=== PATIENT | female | born 1960 | race Caucasian/White ===

== ENCOUNTER 2017-11-30 11:03 | Inpatient (IN) | payer OTHER ==
[~2017-11-30] VITALS: Ht 154.9 cm; Wt 54.0 kg
[2017-11-30] MEDS ORDERED: KETOROLAC TROMETHAMINE 30 MG/ML VIAL IV STA (11:30)
--- NOTE | 2017-11-30 11:34 | EMERGENCY ROOM VISIT NOTE ---
History Report prepared by Kishoribbaljinder: Nancy Brito Under the Supervision of: Dr. Shane Junior M.D. First contact with patient: 11:25 Chief Complaint: BACK PAIN Stated Complaint: SEVERE L SPINE PAIN,LEFT LEG PARALYSIS,FALLS History of Present Illness The patient is a 57 year old female who presents to the Emergency Room with complaints of worsening back pain for the past few months. She states she has a history of back pain, but it has worsened recently. This morning she was so off balance while trying to walk that she fell. She rates her discomfort as an 8/10 in severity. Movement worsens her pain. Ibuprofen and Vicodin have provided minimal relief. She reports she can no longer lift her left leg on her own due to weakness. She cannot walk well on her own. Her family doctor is back in [facility], and she has never seen Neurology for her symptoms. She denies any fevers, numbness in the groin, urinary symptoms, change in bowel habits. The patients daughter notes she did get a pain injection about 2 years ago for her back pain, but states it did nothing. She last had an MRI of the back approximately 2 years ago. 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 A total of 10 systems reviewed and were otherwise negative. Past Medical & Surgical Medical Problems: (1) Back pain (2) Hypertension Social History Alcohol Use: none Drug Use: none Marital Status: Housing Status: lives with family Occupation Status: retired Current/Historical Medications Scheduled Amlodipine (Norvasc), 10 MG PO DAILYBL Clonidine Hcl (Catapres), 0.2 MG PO BID Diclofenac Sod (Diclofenac Sodium Dr), 1 TAB PEG TIDM Lisinopril (Zestril), 10 MG PO DAILYBL Scheduled PRN Cyclobenzaprine Hcl (Flexeril), 1 TAB PO TID PRN for Muscle Spasms Allergies Coded Allergies: No Known Allergies (Unverified , 11/30/17) Physical Exam Vital Signs Date Time Temp Pulse Resp B/P (MAP) Pulse Ox O2 Delivery O2 Flow Rate FiO2 11/30/17 14:21 93 18 144/89 97 Room Air 11/30/17 11:09 36.8 100 20 140/85 97 Physical Exam GENERAL: Patient is in no acute distress. HEENT: No acute trauma, normocephalic atraumatic, mucous membranes moist, no nasal congestion, no scleral icterus. NECK: No stridor, no adenopathy, no meningismus, trachea is midline. LUNGS: Clear to auscultation bilaterally, no wheeze, no rhonchi, breath sounds equal. HEART: Without murmurs gallops or rubs, regular rate and rhythm. BACK: Left lumbar muscle spasm, no focal bony discomfort or bony step off. ABDOMEN: Soft, nontender, bowel sounds positive, no hernias, no peritonitis. EXTREMITIES: No cyanosis or edema, full range of motion of all the joints without pain or difficulty, no signs for acute trauma. NEUROLOGIC: 3/4 Patellar and Achilles reflexes bilaterally, significant weakness with hip flexion and leg extension on the left compared to the right. SKIN: No rash, no jaundice, no diaphoresis. Medical Decision & Procedures ER Provider Diagnostic Interpretation: Radiology results as stated below per my review and radiologist interpretation: MRI LUMBAR SPINE COMBINATION CLINICAL HISTORY: left leg weakness, lower back pain TECHNIQUE: Sagittal and axial T1, T2 and STIR images were obtained. Images were acquired before and after the administration of 5.4 cc of intravenous Gadavist. COMPARISON STUDY: No previous studies for comparison. OBSERVATIONS: The vertebral bodies and posterior elements appear intact. There is no abnormal bony signal present to suggest a marrow replacement process. L1-2: No disc protrusions or extrusions. No evidence of spinal canal or neural foraminal compromise. L2-3: There is a mild circumferential disc bulge. No focal herniations are visualized. There is no significant spinal or foraminal stenosis L3-4: There is a mild circumferential disc bulge slightly asymmetric to the left.. There is very minimal spinal canal narrowing. There are no focal herniations. There is no significant foraminal narrowing L4-5: There is an annular fissure and very small broad-based central disc protrusion. There is slight effacement of the thecal sac with a slight triangular configuration of the thecal sac. There is no significant foraminal narrowing L5-S1: There is an annular fissure. There is a very small central disc protrusion. There is no significant spinal or foraminal stenosis. Postcontrast images reveal no pathologically enhancing lesions. The conus medullaris and cauda equina appear normal. IMPRESSION: 1. Mild multilevel spondylitic changes 2. Annular fissures and mild right base central disc protrusions, at the L4-5 and L5-S1 levels. 3. No evidence of high-grade spinal stenosis. No evidence of foraminal narrowing. 4. No pathologically enhancing lesions identified Electronically signed by: Fawad Rogers M.D. 11/30/2017 2:20 PM Laboratory Results 11/30/17 11:46 11/30/17 11:46 Test 11/30/17 11:36 11/30/17 11:46 Urine Color YELLOW Urine Appearance CLEAR (CLEAR) Urine pH 6.5 (4.5-7.5) Urine Specific [place] 1.005 (1.000-1.030) Urine Protein NEG (NEG) Urine Glucose (UA) NEG (NEG) Urine Ketones NEG (NEG) Urine Occult Blood TRACE (NEG) Urine Nitrite NEG (NEG) Urine Bilirubin NEG (NEG) Urine Urobilinogen NEG (NEG) Urine Leukocyte Esterase TRACE (NEG) Urine WBC (Auto) 1-5 /hpf (0-5) Urine RBC (Auto) 0-4 /hpf (0-4) Urine Hyaline Casts (Auto) 0 /lpf (0-5) Urine Epithelial Cells (Auto) 5-10 /lpf (0-5) Urine Bacteria (Auto) NEG (NEG) Red Blood Count 5.14 M/uL (4.2-5.4) Mean Corpuscular Volume 91.1 fL (80-100) Mean Corpuscular Hemoglobin 31.1 pg (25-34) Mean Corpuscular Hemoglobin Concent 34.2 g/dl (32-36) RDW Standard Deviation 41.3 fL (36.4-46.3) RDW Coefficient of Variation 12.2 % (11.5-14.5) Mean Platelet Volume 10.1 fL (7.4-10.4) Anion Gap 5.0 mmol/L (3-11) Est Creatinine Clear Calc Drug Dose 53.1 ml/min Estimated GFR () 85.7 Estimated GFR (Non- 73.9 BUN/Creatinine Ratio 15.1 (10-20) Calcium Level 9.5 mg/dl (8.5-10.1) Magnesium Level 2.3 mg/dl (1.8-2.4) Thyroid Stimulating Hormone (TSH) 1.310 uIu/ml (0.300-4.500) Laboratory results reviewed by me. Medications Administered Medications (Trade) Dose Ordered Sig/Patricio Route Start Time Stop Time Status Last Admin Dose Admin Ketorolac Tromethamine (Toradol Inj) 30 mg NOW STAT IV 11/30/17 11:30 11/30/17 11:34 DC 11/30/17 11:46 30 MG Methylprednisolone Sodium Succinate (Solu-Medrol IV) 125 mg NOW STAT IV 11/30/17 15:27 11/30/17 15:28 DC 11/30/17 16:35 125 MG ED Course 1125: The patient was evaluated in room C3. A complete history and physical exam was performed. 1130: Toradol 30 mg IV. 1255: I reevaluated the patient. She is feeling well and resting comfortably. 1345: Gadavist 5.4 mmol IV. 1448: I reevaluated the patient. She is feeling somewhat better but still feels weak. 1455: I discussed the patients case with Dr. Bush, [facility]. She will have her office contact the patient tomorrow. 1522: I reevaluated the patient. She states she feels afraid to go home and her family is afraid to take her home. I spoke to case management and they state there are no options other than treatment in the hospital. I discussed this with the patient and she is agreeable with this plan. 1527: I discussed the patients case with Dr. Yuan, [facility] Hospitalist. The patient will be further evaluated. 1527: Solu-Medrol 125 mg IV. Medical Decision The differential diagnoses considered include disc disease, spinal stenosis, nerve impingement, malignancy, infection, UTI and electrolyte imbalance. There is a very mild leukocytosis, this could be consistent with infection or just her pain. No concerning anemia. No significant electrolyte abnormality or kidney failure. The patient appears to be in a euthyroid state. Urinalysis does not show evidence for infection. Lumbar spine MRI did not show any acute surgical process or lesion that would explain her symptoms. On my exam, her left leg was weak, her reflexes were intact. She had a very difficult time ambulating here, she fell this morning trying to ambulate. I did speak with the neurologist on-call, steroids were felt reasonable. The patient received IV Solu-Medrol for inflammation, she received IV Toradol for pain. The patient is not able to go home as per the family. They feel unsafe with discharge. At this point, the cause for this entire presentation is unclear. Her weakness is isolated to her left lower extremity, she is not weak in the left upper extremity, there is no facial droop or speech slur. I spoke to the patient and case management, the on-call hospitalist was consulted. Further workup is required. Medication Reconcilliation Current Medication List: was personally reviewed by me Blood Pressure Screening Patient's blood pressure: Elevated blood pressure Blood pressure disposition: Elevated BP felt to be situational Consults Time Called: 1453 Consulting Physician: [facility] Returned Call: [phone] I discussed the patients case with [facility]. She will have her office contact the patient tomorrow. Additional Consults: Time Called: 1525 Consulted Physician: Dr. Yuan, [facility] Hospitalist Returned Call: [phone] Additional Comments: I discussed the patients case with Dr. Yuan [facility] Hospitalist. The patient will be further evaluated. Impression Primary Impression: Low back pain Additional Impressions: Left leg weakness Frequent falls Failure of outpatient treatment Scribe Attestation The scribe's documentation has been prepared under my direction and personally reviewed by me in its entirety. I confirm that the note above accurately reflects all work, treatment, procedures, and medical decision making performed by me. Departure Information Dispostion Being Evaluated By Hospitalist Referrals Jeramy Tariq D.O. (PCP) Patient Instructions My [facility] Problem Qualifiers
[2017-11-30 11:56] LABS: HEMATOCRIT 46.8 % (37-47); MEAN CELL VOLUME 91.1 fL (80-100); MEAN CORPUSCULAR HEMOGLOBIN 31.1 pg (25-34); MEAN CORPUSCULAR HGB CONC 34.2 g/dl (32-36); MEAN PLATELET VOLUME 10.1 fL (7.4-10.4); PLATELET COUNT 303 K/uL (130-400); RED CELL DISTRIBUTION WIDTH CV 12.2 % (11.5-14.5); RED CELL DISTRIBUTION WIDTH SD 41.3 fL (36.4-46.3); WHITE BLOOD COUNT 11.86 K/uL (4.8-10.8)
[2017-11-30] MEDS ORDERED: LISI-461 PO (11:56)
[2017-11-30] MEDS ORDERED: AMLO-114 PO (12:00)
[2017-11-30] MEDS ORDERED: VLT50 PEG (12:00)
[2017-11-30] MEDS ORDERED: CYCL10TA6 PO (12:00)
[2017-11-30] MEDS ORDERED: CLON0.2T11 PO (12:00)
[2017-11-30 12:14] LABS: CALCIUM 9.5 mg/dl (8.5-10.1); CREATININE 0.86 mg/dl (0.60-1.20); POTASSIUM 3.7 mmol/L (3.5-5.1)
[2017-11-30] MEDS ORDERED: GADAVIST IV PRN (13:45)
--- NOTE | 2017-11-30 14:21 | DIAGNOSTIC IMAGING REPORT ---
MRI LUMBAR SPINE COMBINATION CLINICAL HISTORY: left leg weakness, lower back pain TECHNIQUE: Sagittal and axial T1, T2 and STIR images were obtained. Images were acquired before and after the administration of 5.4 cc of intravenous Gadavist. COMPARISON STUDY: No previous studies for comparison. OBSERVATIONS: The vertebral bodies and posterior elements appear intact. There is no abnormal bony signal present to suggest a marrow replacement process. L1-2: No disc protrusions or extrusions. No evidence of spinal canal or neural foraminal compromise. L2-3: There is a mild circumferential disc bulge. No focal herniations are visualized. There is no significant spinal or foraminal stenosis L3-4: There is a mild circumferential disc bulge slightly asymmetric to the left.. There is very minimal spinal canal narrowing. There are no focal herniations. There is no significant foraminal narrowing L4-5: There is an annular fissure and very small broad-based central disc protrusion. There is slight effacement of the thecal sac with a slight triangular configuration of the thecal sac. There is no significant foraminal narrowing L5-S1: There is an annular fissure. There is a very small central disc protrusion. There is no significant spinal or foraminal stenosis. Postcontrast images reveal no pathologically enhancing lesions. The conus medullaris and cauda equina appear normal. IMPRESSION: 1. Mild multilevel spondylitic changes 2. Annular fissures and mild right base central disc protrusions, at the L4-5 and L5-S1 levels. 3. No evidence of high-grade spinal stenosis. No evidence of foraminal narrowing. 4. No pathologically enhancing lesions identified Electronically signed by: Fawad Rogers M.D. 11/30/2017 2:20 PM Dictated Date/Time: 11/30/2017 2:15 PM
[2017-11-30] MEDS ORDERED: METHYLPREDNISOLONE 125 MG VIAL IV STA (15:27)
[2017-11-30] MEDS ORDERED: ONDANSETRON INJ 2 MG/ML 2 ML VIAL IV PRN (15:45)
--- NOTE | 2017-11-30 16:00 | History and Physical ---
History & Physical Date & Time of Service: Nov 30, 2017 at 15:48 Chief Complaint: Severe L Spine Pain,Left Leg Paralysis,Falls Primary Care Physician: Jeramy Tariq D.O. History of Present Illness Source: patient, family 57 y/o F c/o back pain and L LE weakness. Pt has been having progressing low back pain and L LE weakness over the last several months. She has back spasms that are very painful to her. She has had progressive weakness of L LE to the point that she has been dragging her L LE over the last few weeks. This has lead to multiple falls, although no injuries or concerns for injuries from pt or daughter. She has otherwise been in her usual status of health. She has had no confusion, slurring, facial droop, or issues with her UE. No pain or issues with the R LE. No numbness or tingling in the LE. She eats without issue. Pt denies fever, SOB, chest pain, abd pain, n/v/c/d, LE swelling. [place] She has no known tick bites or rashes, but there are different types of ticks pulled off of the dogs. She has no hx of Lyme disease. She did see her PCP for this issue an labs were done in July. Daughter states basic labs including thyroid, but no Lyme testing. She was given pain medications, however they have not helped at all. Pt has no hx of hospitalizations or major health issues. She has never had MSK issues like this prior. Past Medical/Surgical History Medical Problems: (1) Back pain (2) Hypertension Family History Denies SD, CVA Social History Smoking Status: Current Every Day Smoker (down to 1/2 ppd) Alcohol Use: none Drug Use: none Marital Status: Occupational Status: retired Allergies Coded Allergies: No Known Allergies (Unverified , 11/30/17) Home Medications Scheduled Amlodipine (Norvasc), 10 MG PO DAILYBL Clonidine Hcl (Catapres), 0.2 MG PO BID Diclofenac Sod (Diclofenac Sodium Dr), 1 TAB PEG TIDM Lisinopril (Zestril), 10 MG PO DAILYBL Scheduled PRN Cyclobenzaprine Hcl (Flexeril), 1 TAB PO TID PRN for Muscle Spasms Review of Systems Pertinent positives and negatives reviewed in HPI--all others negative Physical Exam Vital Signs Date Time Temp Pulse Resp B/P (MAP) Pulse Ox O2 Delivery O2 Flow Rate FiO2 11/30/17 14:21 93 18 144/89 97 Room Air 11/30/17 11:09 36.8 100 20 140/85 97 General Appearance: WD/WN, no apparent distress Head: normocephalic, atraumatic Eyes: normal inspection, sclerae normal Respiratory/Chest: normal breath sounds, no respiratory distress Cardiovascular: regular rate, rhythm, no edema Abdomen/GI: non tender, soft Extremities/Musculoskelatal: no calf tenderness, no pedal edema 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 R LE is 5/5 against resistance in all planes. L LE is 5/5 but slightly weaker against resistance testing of ankle and knee, 0/5 from the hip.) Skin: normal color, warm/dry Diagnostics Laboratory Results Results Past 24 Hours Test 11/30/17 11:36 11/30/17 11:46 Range/Units Urine Color YELLOW Urine Appearance CLEAR CLEAR Urine pH 6.5 4.5-7.5 Urine Specific [place] 1.005 1.000-1.030 Urine Protein NEG NEG Urine Glucose (UA) NEG NEG Urine Ketones NEG NEG Urine Occult Blood TRACE NEG Urine Nitrite NEG NEG Urine Bilirubin NEG NEG Urine Urobilinogen NEG NEG Urine Leukocyte Esterase TRACE NEG Urine WBC (Auto) 1-5 0-5 /hpf Urine RBC (Auto) 0-4 0-4 /hpf Urine Hyaline Casts (Auto) 0 0-5 /lpf Urine Epithelial Cells (Auto) 5-10 0-5 /lpf Urine Bacteria (Auto) NEG NEG White Blood Count 11.86 4.8-10.8 K/uL Red Blood Count 5.14 4.2-5.4 M/uL Hemoglobin 16.0 12.0-16.0 g/dL Hematocrit 46.8 37-47 % Mean Corpuscular Volume 91.1 80-100 fL Mean Corpuscular Hemoglobin 31.1 25-34 pg Mean Corpuscular Hemoglobin Concent 34.2 32-36 g/dl RDW Standard Deviation 41.3 36.4-46.3 fL RDW Coefficient of Variation 12.2 11.5-14.5 % Platelet Count 303 130-400 K/uL Mean Platelet Volume 10.1 7.4-10.4 fL Sodium Level 139 136-145 mmol/L Potassium Level 3.7 3.5-5.1 mmol/L Chloride Level 105 98-107 mmol/L Carbon Dioxide Level 29 21-32 mmol/L Anion Gap 5.0 3-11 mmol/L Blood Urea Nitrogen 13 7-18 mg/dl Creatinine 0.86 0.60-1.20 mg/dl Est Creatinine Clear Calc Drug Dose 53.1 ml/min Estimated GFR () 85.7 Estimated GFR (Non- 73.9 BUN/Creatinine Ratio 15.1 10-20 Random Glucose 93 70-99 mg/dl Calcium Level 9.5 8.5-10.1 mg/dl Magnesium Level 2.3 1.8-2.4 mg/dl Thyroid Stimulating Hormone (TSH) 1.310 0.300-4.500 uIu/ml Diagnostic Radiology MRI 1. Mild multilevel spondylitic changes 2. Annular fissures and mild right base central disc protrusions, at the L4-5 and L5-S1 levels. 3. No evidence of high-grade spinal stenosis. No evidence of foraminal narrowing. 4. No pathologically enhancing lesions identified Impression Assessment and Plan 57 y/o F who was admitted on 11/30 for L LE weakness and inability to ambulate. L LE weakness/inability to ambulate: progressive over the last several months and now leading to falls and inability to take care of herself L LE is generally weaker in all planes compared to R but still 5/5 from the ankle and knee, however has 0/5 strength from the hip specifically LBP noted as well Scheduled decadron and monitor for response, toradol MRI noted with minimal findings that would not explain this issue CBC, PRP, Mg, TSH WNL Lyme, B12/folate, RPR pending UA neg PT/OT pending HTN: stable, continue home meds Tobacco use: has been working towards quitting Nicotine patch 14mg Other: Full code SCDs for DVT proph Reg diet Pt lives alone, CM notified of admission Resuscitation Status VTE Prophylaxis Will order VTE Prophylaxis: Yes Reason for no VTE drug order: Treatment not indicated
[2017-11-30 16:16] VITALS: O2SAT 97; Ht 154.9 cm; Wt 54.0 kg
[2017-11-30] MEDS ORDERED: DICLOFENAC SOD 25 MG TABEC PEG SCH (17:00)
[2017-11-30 17:01] VITALS: BP 150/94; PULSE 78; O2SAT 100
[2017-11-30 17:04] VITALS: O2SAT 100
[2017-11-30] MEDS: DEXAMETHASONE INJ 4 MG in SYRINGE 0 ML IV SCH (18:14)
[2017-11-30] MEDS ORDERED: IV FLUIDS COMPLETED PRN (20:00)
[2017-11-30] MEDS: CLONIDINE HCL 0.1 MG TAB PO SCH (20:06)
[2017-11-30] MEDS: CYANOCOBALAMIN 1000 MCG/ML VIAL IM SCH (20:11)
[2017-11-30 23:53] VITALS: BP 124/86; PULSE 77; O2SAT 98
[2017-12-01] MEDS: DEXAMETHASONE INJ 4 MG in SYRINGE 0 ML IV SCH ×3 (01:59→18:57)
[2017-12-01 07:30] VITALS: BP 130/90; PULSE 78; TEMP 36.7; O2SAT 98
[2017-12-01] MEDS: CLONIDINE HCL 0.1 MG TAB PO SCH ×2 (08:29→20:11)
[2017-12-01] MEDS: NICOTINE 14 MG/24 HR TDSY TD SCH (08:33)
[2017-12-01] MEDS: KETOROLAC TROMETHAMINE 15 MG/ML VIAL IV PRN ×2 (08:33→10:12)
[2017-12-01 08:36] VITALS: O2SAT 98
--- NOTE | 2017-12-01 10:31 | Progress Note ---
Subjective Date of Service: Dec 01, 2017. Subjective Pt evaluation today including: conversation w/ patient Patient reports weakness in her left leg specifically her hip flexors. Patient also reporrts pain from her lower back that radiates to her left leg. Problem List Medical Problems: (1) Failure of outpatient treatment Status: Acute (2) Frequent falls Status: Acute (3) Left leg weakness Status: Acute (4) Low back pain Status: Acute Review of Systems Constitutional: No fever Eyes: No worsening of vision ENT: No hearing loss Respiratory: No cough Cardiac: No chest pain Abdomen: No pain Musculoskeletal: + muscle pain Neurologic: + weakness Psychiatric: No depression symptoms Heme: No abnormal bleeding/bruising Endo: No fatigue All Other Systems: Reviewed and Negative Medications Current Inpatient Medications Medications (Trade) Dose Ordered Sig/Patricio Route Start Time Stop Time Status Last Admin Dose Admin Gadobutrol (Gadavist) 5.4 mmol UD PRN IV 11/30/17 13:45 12/04/17 13:44 Acetaminophen (Tylenol Tab) 650 mg Q4H PRN PO 11/30/17 15:45 12/30/17 15:44 Magnesium Hydroxide (Milk Of Magnesia Susp) 30 ml Q6H PRN PO 11/30/17 15:45 12/30/17 15:44 Ondansetron HCl (Zofran Inj) 4 mg Q6H PRN IV 11/30/17 15:45 12/30/17 15:44 Dexamethasone Sodium Phosphate 4 mg/Syringe 1 ml @ 1 mls/min Q8H IV 11/30/17 18:00 12/30/17 17:59 12/01/17 01:59 1 MLS/MIN Ketorolac Tromethamine (Toradol Inj) 15 mg Q6H PRN IV 11/30/17 16:00 12/05/17 15:59 12/01/17 08:33 15 MG Amlodipine Besylate (Norvasc Tab) 10 mg DAILYBL PO 12/01/17 11:00 12/31/17 10:59 Cyclobenzaprine HCl (Flexeril Tab) 10 mg TID PRN PO 11/30/17 18:00 12/30/17 17:59 Lisinopril (Zestril Tab) 10 mg DAILYBL PO 12/01/17 11:00 12/31/17 10:59 Clonidine HCl (Catapres Tab) 0.2 mg BID PO 11/30/17 20:00 12/30/17 20:59 12/01/17 08:29 0.2 MG Diclofenac Sodium (Voltaren Tab) 50 mg TIDM PEG 11/30/17 17:00 12/30/17 17:59 Future Hold Nicotine (Nicoderm Cq 14MG Patch) 1 patch QAM TD 12/01/17 08:00 12/31/17 08:59 Miscellaneous (Remove Nicoderm Patch) 1 ea HS N/A 11/30/17 21:00 12/30/17 20:59 Cyanocobalamin (Vitamin B-12 Inj) 1,000 mcg DAILY@1900 IM 11/30/17 19:00 12/04/17 18:44 11/30/17 20:11 1,000 MCG Miscellaneous (Iv Fluids Completed) 1 ea PRN PRN N/A 11/30/17 20:00 11/30/18 19:59 Objective Vital Signs Date Time Temp Pulse Resp B/P (MAP) Pulse Ox O2 Delivery O2 Flow Rate FiO2 12/01/17 08:36 98 Room Air 12/01/17 07:30 36.7 78 20 130/90 (103) 98 Room Air 12/01/17 04:00 Room Air 12/01/17 00:00 Room Air 11/30/17 23:53 77 18 124/86 (99) 98 Room Air 11/30/17 17:04 100 Room Air 11/30/17 17:01 78 16 150/94 (112) 100 Room Air 11/30/17 16:40 36.8 90 18 141/107 100 11/30/17 16:34 90 18 141/107 100 11/30/17 16:16 97 Room Air 11/30/17 14:21 93 18 144/89 97 Room Air 11/30/17 11:09 36.8 100 20 140/85 97 Physical Exam General Appearance: WD/WN, no apparent distress Eyes: normal inspection ENT: normal ENT inspection Neck: supple, no adenopathy Respiratory/Chest: chest non-tender, lungs clear, normal breath sounds Cardiovascular: regular rate, rhythm, no edema Abdomen: normal bowel sounds, non tender, soft Extremities: normal range of motion Neurologic/Psychiatric: alert, oriented x 3, + pertinent finding Comments: + pertinent finding (normal sensations in all extremities, 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 R LE is 5/5 against resistance in all planes. L LE is 4+/5 withslightly weaker against resistance testing of ankle and knee, 2-3/5 from the hip.) Laboratory Results Last 24 Hours Test 11/30/17 11:36 11/30/17 11:46 11/30/17 17:23 Urine Color YELLOW Urine Appearance CLEAR Urine pH 6.5 Urine Specific [place] 1.005 Urine Protein NEG Urine Glucose (UA) NEG Urine Ketones NEG Urine Occult Blood TRACE Urine Nitrite NEG Urine Bilirubin NEG Urine Urobilinogen NEG Urine Leukocyte Esterase TRACE Urine WBC (Auto) 1-5 /hpf Urine RBC (Auto) 0-4 /hpf Urine Hyaline Casts (Auto) 0 /lpf Urine Epithelial Cells (Auto) 5-10 /lpf Urine Bacteria (Auto) NEG White Blood Count 11.86 K/uL Red Blood Count 5.14 M/uL Hemoglobin 16.0 g/dL Hematocrit 46.8 % Mean Corpuscular Volume 91.1 fL Mean Corpuscular Hemoglobin 31.1 pg Mean Corpuscular Hemoglobin Concent 34.2 g/dl RDW Standard Deviation 41.3 fL RDW Coefficient of Variation 12.2 % Platelet Count 303 K/uL Mean Platelet Volume 10.1 fL Sodium Level 139 mmol/L Potassium Level 3.7 mmol/L Chloride Level 105 mmol/L Carbon Dioxide Level 29 mmol/L Anion Gap 5.0 mmol/L Blood Urea Nitrogen 13 mg/dl Creatinine 0.86 mg/dl Est Creatinine Clear Calc Drug Dose 53.1 ml/min Estimated GFR () 85.7 Estimated GFR (Non- 73.9 BUN/Creatinine Ratio 15.1 Random Glucose 93 mg/dl Calcium Level 9.5 mg/dl Magnesium Level 2.3 mg/dl Thyroid Stimulating Hormone (TSH) 1.310 uIu/ml Lyme Disease IgG Antibody NEG Lyme Disease IgM Antibody NEG Hepatitis C Antibody Screen NEG Vitamin B12 Level 335 pg/mL Folate 7.40 ng/mL Assessment and Plan 57 y/o F who was admitted on 11/30 for L LE weakness and inability to ambulate. L LE weakness/inability to ambulate: progressive over the last several months and now leading to falls and inability to take care of herself L LE is generally weaker in all planes compared to R but still 5/5 from the ankle and knee, however has 0/5 strength from the hip specifically LBP noted as well May require EMG. Scheduled decadron and monitor for response, toradol Will likely switch to PO in afternoon. MRI noted with minimal findings that would not explain this issue CBC, PRP, Mg, TSH WNL Lyme, B12/folate, RPR pending UA neg PT/OT pending HTN: stable, continue home meds Tobacco use: has been working towards quitting Nicotine patch 14mg Other: Full code SCDs for DVT proph Reg diet Pt lives alone, CM notified of admission Continued [facility] stay due to: ambulation difficulties Discharge planning: uncertain
[2017-12-01] MEDS: LISINOPRIL 10 MG TAB PO SCH (11:42)
[2017-12-01] MEDS: AMLODIPINE BESYLATE 5 MG TAB PO SCH (11:43)
--- NOTE | 2017-12-01 13:39 | Neurology Consultation ---
Neurology Consultation Date of Consultation: Dec 01, 2017. Attending Physician: Malachi French M.D. Primary Care Physician: Jeramy Tariq D.O. Reason for Consultation: LLE weakness History of Present Illness Source: patient Francisco is a 57 year old female with PMH HTN, and history of back pain and L LE weakness. She states the back pain has increased and L LE weakness had increased over the last several months. At times she has very painful back spasm and at times she drags her left LE. she has had multiple falls, although no injuries. She denies fever chills night sweats, illness, N, V, D, CP, SOB, chewing difficulties, fatiguing during the day, UE weakness, swallowing issues, vision changes, hearing loss. 1/2 ppd smoker, no EtOH use, minimal caffeine use, no neurologic or rheumatologic family history Past Medical/Surgical History Medical Problems: (1) Failure of outpatient treatment Status: Acute (2) Frequent falls Status: Acute (3) Left leg weakness Status: Acute (4) Low back pain Status: Acute Social History Smoking Status: Current every day smoker Smokeless Tobacco Use: No Alcohol Use: none Drug Use: none Marital Status: Housing Status: lives with family Occupation Status: retired Allergies Coded Allergies: No Known Allergies (Unverified , 11/30/17) Current Inpatient Medications Current Inpatient Medications Medications (Trade) Dose Ordered Sig/Patricio Route Start Time Stop Time Status Last Admin Dose Admin Gadobutrol (Gadavist) 5.4 mmol UD PRN IV 11/30/17 13:45 12/04/17 13:44 Acetaminophen (Tylenol Tab) 650 mg Q4H PRN PO 11/30/17 15:45 12/30/17 15:44 Magnesium Hydroxide (Milk Of Magnesia Susp) 30 ml Q6H PRN PO 11/30/17 15:45 12/30/17 15:44 Ondansetron HCl (Zofran Inj) 4 mg Q6H PRN IV 11/30/17 15:45 12/30/17 15:44 Dexamethasone Sodium Phosphate 4 mg/Syringe 1 ml @ 1 mls/min Q8H IV 11/30/17 18:00 12/30/17 17:59 12/01/17 10:12 1 MLS/MIN Ketorolac Tromethamine (Toradol Inj) 15 mg Q6H PRN IV 11/30/17 16:00 12/05/17 15:59 12/01/17 10:12 15 MG Amlodipine Besylate (Norvasc Tab) 10 mg DAILYBL PO 12/01/17 11:00 12/31/17 10:59 12/01/17 11:43 10 MG Cyclobenzaprine HCl (Flexeril Tab) 10 mg TID PRN PO 11/30/17 18:00 12/30/17 17:59 Lisinopril (Zestril Tab) 10 mg DAILYBL PO 12/01/17 11:00 12/31/17 10:59 12/01/17 11:42 10 MG Clonidine HCl (Catapres Tab) 0.2 mg BID PO 11/30/17 20:00 12/30/17 20:59 12/01/17 08:29 0.2 MG Diclofenac Sodium (Voltaren Tab) 50 mg TIDM PEG 11/30/17 17:00 12/30/17 17:59 Future Hold Nicotine (Nicoderm Cq 14MG Patch) 1 patch QAM TD 12/01/17 08:00 12/31/17 08:59 Miscellaneous (Remove Nicoderm Patch) 1 ea HS N/A 11/30/17 21:00 12/30/17 20:59 Cyanocobalamin (Vitamin B-12 Inj) 1,000 mcg DAILY@1900 IM 11/30/17 19:00 12/04/17 18:44 11/30/17 20:11 1,000 MCG Miscellaneous (Iv Fluids Completed) 1 ea PRN PRN N/A 11/30/17 20:00 11/30/18 19:59 Physical Exam Vital Signs (Past 24 Hrs): Date Time Temp Pulse Resp B/P (MAP) Pulse Ox O2 Delivery O2 Flow Rate FiO2 12/01/17 10:00 Room Air 12/01/17 08:36 98 Room Air 12/01/17 07:30 36.7 78 20 130/90 (103) 98 Room Air 12/01/17 04:00 Room Air 12/01/17 00:00 Room Air 11/30/17 23:53 77 18 124/86 (99) 98 Room Air 11/30/17 17:04 100 Room Air 11/30/17 17:01 78 16 150/94 (112) 100 Room Air 11/30/17 16:40 36.8 90 18 141/107 100 11/30/17 16:34 90 18 141/107 100 11/30/17 16:16 97 Room Air 11/30/17 14:21 93 18 144/89 97 Room Air Physical Exam: Constitutional:appearance nourished, healthy and normal Ears, Nose, Mouth and Throat: mucous membranes moist, no injection and skin normal, eyes normal Cardiovascular: normal S-1 and S-2 and regular rate and rhythm Respiratory: course breath sounds Musculoskeletal: no peripheral edema and good distal pulses Skin: no stigmata of neurocutaneous disease noted and normal and intact Eyes: extraocular muscles intact (EOMI) and pupils equal, round and reactive to light (PERRL) NEUROLOGIC EXAMINATION: Mental status: Alert and interactive Oriented to full date and location Oriented to person Speech fluent with no evidence of aphasia Cranial Nerves smile eye brow raise symmetric Reflexes: Deep tendon reflexes were symmetrical and graded 2/5. up going toes bilaterally Sensory: light or cool touch intact, GT proprioception in tact Coordination: finger to nose no bi pass Gait/Stance: Posture sitting in bed uses hands to move both legs when getting OOB, stands but romberg with eyes open Motor: slight drift with LUE Strength: biceps triceps deltoids with no fatiguing bilaterally 5/5, hip flex left 0/5, patellar/plantar flex ext 4/5, right hip flex plantar patellar flex ext 4/5 Laboratory Results Past 24 Hours: Test 11/30/17 17:23 12/01/17 12:06 Vitamin B12 Level 335 pg/mL (211-911) Folate 7.40 ng/mL (>5.38) Erythrocyte Sedimentation Rate 2 mm/hr (0-21) C-Reactive Protein < 0.29 mg/dl (0-0.29) Imaging MRI L spine -Mild multilevel spondylitic changes 2. Annular fissures and mild right base central disc protrusions, at the L4-5 and L5-S1 levels. No evidence of high-grade spinal stenosis. No evidence of foraminal narrowing. No pathologically enhancing lesions identified Impression 57 year old female multiple falls / LLE weakness Plan 1. xray lumbar spine and hips sacrum- no fracture 2. MRI brain, c spine, thoracic spine myopathy 3. currently on steroids and Flexeril 4. fall risk 5. PT/OT for discharge needs 6. will continue to follow I have seen and discussed above patient with Dr Theodore Carmona, neurology I have seen this patient and reviewed the history which unfortunately is vague I need to get in contact with the daughter at some point but for now the history suggests a progressive gait issue worse with the left leg and not particularly painful for at least a few months in a woman who has clear cut cognitive issues and what appears to be a myelopathy She needs entire neuroaxis imaging to exclude a cord compression in the thoracic or cervical spine and imaging of brain to further check for a leukoencephalopathy hydrocephalus etc we will hopefully know more when a better history is available and imaging is complete Theodore Carmona MD
--- NOTE | 2017-12-01 14:32 | DIAGNOSTIC IMAGING REPORT ---
PELVIS/BILATERAL HIP 2 VIEWS HISTORY: 57 years-old Female left hip and back pain MRI with no disc issues acute left hip and back pain COMPARISON: MRI lumbar spine 11/30/2017 TECHNIQUE: Single AP view the pelvis with 2 views of the bilateral hips FINDINGS: Pelvic ring is intact. No acute fracture, dislocation or significant degenerative changes. Mild degenerative changes involve the bilateral femoral acetabular joints. The SI joints appear unremarkable. Peripheral vascular calcifications are noted. Mild/moderate stool volume of the sigmoid colon. IMPRESSION: 1. No acute fracture. 2. Mild degenerative changes about the bilateral hips. The above report was generated using voice recognition software. It may contain grammatical, syntax or spelling errors. Electronically signed by: Isaak Parekh M.D. 12/01/2017 2:31 PM Dictated Date/Time: 12/01/2017 2:28 PM
[2017-12-01 14:49] VITALS: BP 133/97; PULSE 94; TEMP 36.7; O2SAT 99
[2017-12-01 15:29] VITALS: O2SAT 99
[2017-12-01] MEDS ORDERED: GADAVIST IV PRN (18:15)
--- NOTE | 2017-12-01 18:45 | DIAGNOSTIC IMAGING REPORT ---
MRI OF THE BRAIN COMBO CLINICAL HISTORY: Lower extremity weakness. COMPARISON STUDY: No priors. TECHNIQUE: MRI of the brain was performed utilizing various T1 and T2-weighted sequences in the axial, sagittal, and coronal planes. Contrast-enhanced sequences were acquired following the administration of 5 cc of Gadavist. FINDINGS: Brain parenchyma: There is involutional changes change noting advanced confluent T2 signal abnormality throughout the subcortical and periventricular white matter. A 6 mm focus of abnormal enhancement is identified within the right periventricular white matter, best seen on coronal postcontrast image #11. No additional foci of abnormal enhancement are clearly identified on the postcontrast sequences. Numerous T2 hyperintense foci are present throughout both cerebellar hemispheres, the basal ganglia, the corpus callosum, both thalami, and the periventricular white matter. There is no hemorrhage or mass effect. There is no restricted diffusion typical for acute ischemia. Elizondo-white matter differentiation is preserved. No extra-axial fluid collection is seen. The cerebellar tonsils are normal in configuration. Ventricles, sulci, and cisterns: Prominent secondary to involutional change. Pituitary and sella: Unremarkable. Intracranial vasculature: Normal flow voids are maintained at the skull base. Orbits: The bony orbits are grossly intact. Orbital contents are normal in appearance. Sinuses and mastoids: Clear. Calvarium: Unremarkable. Cervical cord: Partially visualized cervical spinal cord is normal in morphology and signal intensity. IMPRESSION: 1. There is no hemorrhage, mass effect, or evidence of acute ischemia. 2. Advanced confluent white matter changes as above, with additional foci of signal abnormality scattered throughout the cerebellum, corpus callosum, and basal ganglia. A subcentimeter focus of abnormal enhancement is identified within the right periventricular white matter as above. The appearance is nonspecific but is highly suspicious for a demyelinating process such as multiple sclerosis. Differential considerations include other demyelinating processes or less likely an infectious process such as Lyme disease. Clinical correlation will be essential. Electronically signed by: Shane Hart M.D. 12/01/2017 6:44 PM Dictated Date/Time: 12/01/2017 6:36 PM
--- NOTE | 2017-12-01 19:57 | DIAGNOSTIC IMAGING REPORT ---
MRI OF THE CERVICAL SPINE COMBO CLINICAL HISTORY: Lower extremity weakness. COMPARISON STUDY: No priors. TECHNIQUE: MRI of the cervical spine is performed utilizing various T1 and T2-weighted sequences in the axial and sagittal planes. Contrast-enhanced sequences are acquired following the IV administration of 5 cc of Gadavist. The examination is degraded by motion artifact. FINDINGS: Cervical spine: Vertebral body height and alignment are maintained throughout the cervical spine. There is straightening of the cervical lordosis with reversal centered at C4-C5. Marrow signal intensity is heterogeneous. No destructive bony lesion is identified. The atlantodental articulation appears maintained. The spinous processes are intact as imaged. Intervertebral discs: Degenerative disc desiccation is seen throughout the cervical spine. Mild loss of height is seen from C4-C5 through C6-C7. Spinal cord: The visualized spinal cord is normal in morphology. There are numerous T2 hyperintense lesions/plaques seen throughout the cervical cord. The largest plaque is identified at the level of C2-C3 and measures 2.1 cm in length. A 1.1 cm plaque is seen at the C6-C7 level and a 1.2 cm plaque is seen at the C7-T1 level. Numerous additional tiny plaques are seen at all cervical levels. No abnormal enhancement is identified within these plaques on the postcontrast sequences. C2-C3: A tiny posterior disc osteophyte complex is of no consequence. The central canal and neural foramina are patent. C3-C4: A posterior disc osteophyte complex eccentric to the right effaces the ventral subarachnoid space. Uncovertebral and facet arthropathy cause minimal right-sided neural foraminal narrowing. C4-C5: A posterior disc osteophyte complex eccentric to the left abuts the ventral cord. The neural foramina are patent. C5-C6: The central canal is patent. Uncovertebral and facet arthropathy cause moderate left and mild right neural foraminal stenosis. C6-C7: A posterior disc osteophyte complex eccentric to the left is of no consequence. Uncovertebral and facet arthropathy cause [id number] left and moderate right neural foraminal stenosis. C7-T1: Unremarkable. Soft tissues: The prevertebral and paraspinous soft tissues are normal as visualized. Brain parenchyma: Lesions are present within the brainstem and both cerebellar hemispheres. IMPRESSION: 1. There are numerous T2 hyperintense lesions/plaques identified throughout the cervical cord. The appearance is most suggestive of a demyelinating process such as multiple sclerosis. Clinical correlation will be essential. 2. There is no abnormal enhancement identified on the postcontrast sequences to suggest active demyelination. 3. Mild multilevel spondylotic change as above. 4. No destructive osseous process is identified. Dictated: 12/01/2017 7:09 PM Transcribed: 12/01/2017 7:56 PM [email or web address] Electronically signed by: Shane Hart M.D. 12/01/2017 8:29 PM Dictated Date/Time: 12/01/2017 7:09 PM
--- NOTE | 2017-12-01 20:01 | DIAGNOSTIC IMAGING REPORT ---
MRI OF THE THORACIC SPINE COMBO CLINICAL HISTORY: Lower extremity weakness. COMPARISON STUDY: MRI of the brain and cervical spine performed concurrently on 12/01/2017. TECHNIQUE: MRI of the thoracic spine is performed utilizing various T1 and T2-weighted sequences in the axial, sagittal, and coronal planes. Contrast-enhanced sequences were acquired following the IV administration of 5 cc of Gadavist. The examination is significantly degraded by motion artifact. FINDINGS: Vertebral body height and alignment are maintained throughout the thoracic spine. No destructive bony process is identified. The transverse and spinous processes are intact as visualized. The intervertebral discs are normal in height and signal intensity. No disc herniation or acquired compromise of the central canal is seen throughout the cervical spine. There is no significant neural foraminal stenosis suggested. The thoracic spinal cord is normal in morphology. The conus medullaris terminates at the level of L1. Numerous small T2 hyperintense plaques are seen throughout the thoracic cord. These are not well visualized, and best seen on the sagittal STIR sequence. The most apparent lesions are present in the lower thoracic cord at the levels of T10, T11, and T12. These are subcentimeter in size. No abnormal enhancement is suggested on the postcontrast sequences. The paraspinous soft tissues are normal as visualized. The imaged lung parenchyma is grossly clear but not well assessed. Small hepatic cysts are suggested but incompletely assessed. IMPRESSION: 1. No destructive bony process is identified involving the thoracic spine. 2. There is no disc herniation or acquired compromise of the central canal. 3. T2 hyperintense lesions/plaques are seen throughout the thoracic cord. These are suboptimally assessed due to motion artifact and are highly concerning for a demyelinating process such as multiple sclerosis when correlated with today's brain and cervical spine examinations. Clinical correlation will be essential. 4. No abnormal enhancement is identified to suggest active demyelination. Dictated: 12/01/2017 7:21 PM Transcribed: 12/01/2017 8:00 PM Arabella Electronically signed by: Shane Hart M.D. 12/01/2017 8:22 PM Dictated Date/Time: 12/01/2017 7:21 PM
[2017-12-01] MEDS: CYANOCOBALAMIN 1000 MCG/ML VIAL IM SCH (20:12)
[2017-12-01 23:06] VITALS: BP 121/78; PULSE 71; TEMP 36.7; O2SAT 96
[2017-12-01 23:29] LABS: RAPID PLASMA REAGIN NONREACTIVE (NONREACT)
[2017-12-02] MEDS: DEXAMETHASONE INJ 4 MG in SYRINGE 0 ML IV SCH ×3 (02:20→18:11)
[2017-12-02] MEDS: NICOTINE 14 MG/24 HR TDSY TD SCH (07:40)
[2017-12-02] MEDS: CLONIDINE HCL 0.1 MG TAB PO SCH ×2 (07:40→20:51)
[2017-12-02 07:45] VITALS: BP 137/87; PULSE 72; TEMP 36.7; O2SAT 96
[2017-12-02 08:00] VITALS: O2SAT 96
[2017-12-02] MEDS: LISINOPRIL 10 MG TAB PO SCH (09:52)
[2017-12-02] MEDS: AMLODIPINE BESYLATE 5 MG TAB PO SCH (09:52)
--- NOTE | 2017-12-02 15:33 | Neurology Progress Notes ---
Neurology Progress Note Date of Service Dec 02, 2017. Subjective Francisco is a 57 year old female with PMH HTN, and history of back pain and L LE weakness. She states the back pain has increased and L LE weakness had increased over the last several months. At times she has very painful back spasm and at times she drags her left LE. she has had multiple falls, although no injuries. She denies fever chills night sweats, illness, N, V, D, CP, SOB, chewing difficulties, fatiguing during the day, UE weakness, swallowing issues, vision changes, hearing loss. 1/2 ppd smoker, no EtOH use, minimal caffeine use, no neurologic or rheumatologic family history Long discussion today with patient and daughter regarding plans for LP. Reviewed the MRI results and she voice understanding. Haylie may not be understanding all the details but does know she wants answers to her weakness. Objective Date Time Temp Pulse Resp B/P (MAP) Pulse Ox O2 Delivery O2 Flow Rate FiO2 12/02/17 08:00 96 Room Air 12/02/17 07:45 36.7 72 20 137/87 (104) 96 Room Air 12/02/17 00:01 Room Air 12/01/17 23:06 36.7 71 18 121/78 (92) 96 Room Air 12/01/17 15:29 99 Room Air no new labs Imaging: MRI brain with and without- There is no hemorrhage, mass effect, or evidence of acute ischemia. Advanced confluent white matter changes as above, with additional foci of signal abnormality scattered throughout the cerebellum, corpus callosum, and basal ganglia. A subcentimeter focus of abnormal enhancement is identified within the right periventricular white matter as above. The appearance is nonspecific but is highly suspicious for a demyelinating process such as multiple sclerosis. Differential considerations include other demyelinating processes or less likely an infectious process such as Lyme disease. Clinical correlation will be essential. MRI C spine with and without- There are numerous T2 hyperintense lesions/ plaques identified throughout the cervical cord. The appearance is most suggestive of a demyelinating process such as multiple sclerosis. Clinical correlation will be essential. There is no abnormal enhancement identified on the postcontrast sequences to suggest active demyelination. Mild multilevel spondylotic change as above. No destructive osseous process is identified. MRI thoracic spine- No destructive bony process is identified involving the thoracic spine. There is no disc herniation or acquired compromise of the central canal. T2 hyperintense lesions/plaques are seen throughout the thoracic cord. These are suboptimally assessed due to motion artifact and are highly concerning for a demyelinating process such as multiple sclerosis when correlated with today's brain and cervical spine examinations. Clinical correlation will be essential. No abnormal enhancement is identified to suggest active demyelination. Exam: Physical Exam: Constitutional: appearance pale weak Ears, Nose, Mouth and Throat: mucous membranes moist, no injection and skin normal, eyes normal Cardiovascular: normal S-1 and S-2 and regular rate and rhythm Respiratory: course breath sounds Musculoskeletal: no peripheral edema and decreased distal pulses Skin: no stigmata of neurocutaneous disease noted and normal and intact Eyes: extraocular muscles intact (EOMI) and pupils equal, round and reactive to light (PERRL) NEUROLOGIC EXAMINATION: Mental status: Alert and interactive Oriented to person Speech fluent with no evidence of aphasia Cranial Nerves smile eye brow raise symmetric Reflexes: Deep tendon reflexes were symmetrical and graded 2/5 brisk. bilateral upgoing GTs Sensory: sensation intact with cool and light touch Coordination: Romberg positive with eye open Gait/Stance: Posture sitting bedside Motor: Negative for pronator drift of out stretched arms with eyes closed. 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, hip flex left 0/5, patellar/plantar flex ext 3 /5, hip flex right 3/5, patellar/plantar flex ext 3/5 Current Inpatient Medications Medications (Trade) Dose Ordered Sig/Patricio Route Start Time Stop Time Status Last Admin Dose Admin Gadobutrol (Gadavist) 5.4 mmol UD PRN IV 11/30/17 13:45 12/04/17 13:44 Acetaminophen (Tylenol Tab) 650 mg Q4H PRN PO 11/30/17 15:45 12/30/17 15:44 Magnesium Hydroxide (Milk Of Magnesia Susp) 30 ml Q6H PRN PO 11/30/17 15:45 12/30/17 15:44 Ondansetron HCl (Zofran Inj) 4 mg Q6H PRN IV 11/30/17 15:45 12/30/17 15:44 Dexamethasone Sodium Phosphate 4 mg/Syringe 1 ml @ 1 mls/min Q8H IV 11/30/17 18:00 12/30/17 17:59 12/02/17 09:52 1 MLS/MIN Ketorolac Tromethamine (Toradol Inj) 15 mg Q6H PRN IV 11/30/17 16:00 12/05/17 15:59 12/01/17 10:12 15 MG Amlodipine Besylate (Norvasc Tab) 10 mg DAILYBL PO 12/01/17 11:00 12/31/17 10:59 12/02/17 09:52 10 MG Cyclobenzaprine HCl (Flexeril Tab) 10 mg TID PRN PO 11/30/17 18:00 12/30/17 17:59 Lisinopril (Zestril Tab) 10 mg DAILYBL PO 12/01/17 11:00 12/31/17 10:59 12/02/17 09:52 10 MG Clonidine HCl (Catapres Tab) 0.2 mg BID PO 11/30/17 20:00 12/30/17 20:59 12/02/17 07:40 0.2 MG Diclofenac Sodium (Voltaren Tab) 50 mg TIDM PEG 11/30/17 17:00 12/30/17 17:59 Future Hold Nicotine (Nicoderm Cq 14MG Patch) 1 patch QAM TD 12/01/17 08:00 12/31/17 08:59 Miscellaneous (Remove Nicoderm Patch) 1 ea HS N/A 11/30/17 21:00 12/30/17 20:59 Cyanocobalamin (Vitamin B-12 Inj) 1,000 mcg DAILY@1900 IM 11/30/17 19:00 12/04/17 18:44 12/01/17 20:12 1,000 MCG Miscellaneous (Iv Fluids Completed) 1 ea PRN PRN N/A 11/30/17 20:00 11/30/18 19:59 Gadobutrol (Gadavist) 5 mmol UD PRN IV 12/01/17 18:15 12/05/17 18:14 Impression 57 year old female multiple falls / LLE weakness Plan 1. xray lumbar spine and hips sacrum- no fracture 2. MRI brain, c spine, thoracic - extensive white matter plaques 3. currently on steroids and Flexeril- no current need 4. fall risk 5. PT/OT for discharge needs 6. LP tomorrow for rule in MS and other studies. ordered - discussed with daughter and patient 7. will need further outpatient work up for lupus and other rheumatologic disorders that can mimic MS 8. no medications will be started at this time will need outpatient follow up with neurologist in her area for treatment plan and to establish care. 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 questionable in terms of time but likely at least severl years and based on imaging suspect decade or more we are going to do the standard workup continue the steroids for now consider an hsnv evaluation and potential stay and then make the decision regarding her staying here with her daughter or returning to [place] for rehap potentially a [facility] with rehab and will need to get set up there with neurology physiatry pain management etc intermediate accountant rx for primary progressive disease currently is only with [facility] and at this point with unclear insurance coverage etc there is really no urgent need for staring any rx will follw up tomorrow Theodore Carmona MD
[2017-12-02 15:50] VITALS: BP 120/75; TEMP 36.6; O2SAT 98
[2017-12-02 16:00] VITALS: O2SAT 98
[2017-12-02] MEDS: KETOROLAC TROMETHAMINE 15 MG/ML VIAL IV PRN (16:16)
[2017-12-02] MEDS: CYANOCOBALAMIN 1000 MCG/ML VIAL IM SCH (18:10)
[2017-12-02 20:00] VITALS: O2SAT 98
--- NOTE | 2017-12-02 22:32 | Progress Note ---
Subjective Date of Service: Dec 02, 2017. Subjective Pt evaluation today including: conversation w/ patient, conversation w/ family , physical exam 57 yo female reports feeling better in regards to pain. She continues to have weakness in her left leg. Patient denies any nausea, vomiting, chest pain. Problem List Medical Problems: (1) Failure of outpatient treatment Status: Acute (2) Frequent falls Status: Acute (3) Left leg weakness Status: Acute (4) Low back pain Status: Acute Review of Systems Constitutional: No fever Eyes: No worsening of vision ENT: No hearing loss Respiratory: No cough Cardiac: No chest pain Abdomen: No pain Musculoskeletal: + muscle pain Neurologic: + weakness Psychiatric: No depression symptoms Heme: No abnormal bleeding/bruising Endo: No fatigue All Other Systems: Reviewed and Negative Objective Vital Signs Date Time Temp Pulse Resp B/P (MAP) Pulse Ox O2 Delivery O2 Flow Rate FiO2 12/02/17 16:00 98 Room Air 12/02/17 15:50 36.6 18 120/75 (90) 98 Room Air 12/02/17 08:00 96 Room Air 12/02/17 07:45 36.7 72 20 137/87 (104) 96 Room Air 12/02/17 00:01 Room Air 12/01/17 23:06 36.7 71 18 121/78 (92) 96 Room Air Physical Exam Comments: General Appearance: WD/WN, no apparent distress Eyes: normal inspection ENT: normal ENT inspection Neck: supple, no adenopathy Respiratory/Chest: chest non-tender, lungs clear, normal breath sounds Cardiovascular: regular rate, rhythm, no edema Abdomen: normal bowel sounds, non tender, soft Extremities: normal range of motion Neurologic/Psychiatric: alert, oriented x 3, + pertinent finding Comments: + pertinent finding (normal sensations in all extremities, furnace mason strength 5/5 b/ l. R LE is 5/5 against resistance in all planes. L LE is 4+/5 withslightly weaker against resistance testing of ankle and knee, 2-3/5 from the hip.) Assessment and Plan 57 y/o F who was admitted on 11/30 for L LE weakness and inability to ambulate. L LE weakness/inability to ambulate: progressive over the last several months and now leading to falls and inability to take care of herself L LE is generally weaker in all planes compared to R but still 5/5 from the ankle and knee, however has 0/5 strength from the hip specifically Imaging is suggestve of Multiple Sclerosis. Neurology recommending Lumbar puncture. Will likely switch to PO Decadron in AM. Patient will likely require inpatient rehab. HTN: stable, continue home meds Tobacco use: has been working towards quitting Nicotine patch 14mg Other: Full code SCDs for DVT proph Reg diet Pt lives alone, CM notified of admission Spent 45 minutes in the management of this case. Continued [facility] stay due to: ambulation difficulties Discharge planning: uncertain
[2017-12-02 22:48] VITALS: BP 125/82; PULSE 75; TEMP 36.8; O2SAT 96
[2017-12-03] VITALS (7 sets, daily range): BP systolic 110–162; BP diastolic 75–101; PULSE 59–75; TEMP 36.7–36.8; O2SAT 97–98
[2017-12-03] MEDS: CLONIDINE HCL 0.1 MG TAB PO SCH ×2 (07:31→20:23)
[2017-12-03] MEDS: DEXAMETHASONE 4 MG TAB PO SCH (07:31)
[2017-12-03] MEDS: NICOTINE 14 MG/24 HR TDSY TD SCH (07:32)
[2017-12-03] MEDS: AMLODIPINE BESYLATE 5 MG TAB PO SCH (10:14)
[2017-12-03] MEDS: LISINOPRIL 10 MG TAB PO SCH (10:14)
--- NOTE | 2017-12-03 12:35 | Neurology Progress Notes ---
Neurology Progress Note Date of Service Dec 03, 2017. Subjective Francisco is a 57 year old female with PMH HTN, and history of back pain and L LE weakness. She states the back pain has increased and L LE weakness had increased over the last several months. At times she has very painful back spasm and at times she drags her left LE. she has had multiple falls, although no injuries. She denies fever chills night sweats, illness, N, V, D, CP, SOB, chewing difficulties, fatiguing during the day, UE weakness, swallowing issues, vision changes, hearing loss. 1/2 ppd smoker, no EtOH use, minimal caffeine use, no neurologic or rheumatologic family history.Long discussion with patient and daughter regarding plans for LP. Reviewed the MRI results and she voice understanding. Haylie may not be understanding all the details but does know she wants answers to her weakness. Today she is sitting up bedside eating lunch. She was told the LP would be happening early afternoon. no new issues Objective Date Time Temp Pulse Resp B/P (MAP) Pulse Ox O2 Delivery O2 Flow Rate FiO2 12/03/17 09:00 75 110/75 (87) 12/03/17 08:00 97 Room Air 12/03/17 07:31 36.8 71 18 162/101 (121) 97 Room Air 160/99 (119) 12/03/17 00:00 98 Room Air 12/02/17 22:48 36.8 75 16 125/82 (96) 96 Room Air 12/02/17 20:00 98 Room Air 12/02/17 16:00 98 Room Air 12/02/17 15:50 36.6 18 120/75 (90) 98 Room Air Last 24 Hours Test 12/03/17 06:52 12/03/17 07:00 Imaging: no new imaging Exam: Gen: alert NAD lungs CTA CV RRR right hip flex 0/5, plantar/patellar flex ext 3/5 up going toes bilaterally Current Inpatient Medications Medications (Trade) Dose Ordered Sig/Patricio Route Start Time Stop Time Status Last Admin Dose Admin Gadobutrol (Gadavist) 5.4 mmol UD PRN IV 11/30/17 13:45 12/04/17 13:44 Acetaminophen (Tylenol Tab) 650 mg Q4H PRN PO 11/30/17 15:45 12/30/17 15:44 Magnesium Hydroxide (Milk Of Magnesia Susp) 30 ml Q6H PRN PO 11/30/17 15:45 12/30/17 15:44 Ondansetron HCl (Zofran Inj) 4 mg Q6H PRN IV 11/30/17 15:45 12/30/17 15:44 Ketorolac Tromethamine (Toradol Inj) 15 mg Q6H PRN IV 11/30/17 16:00 12/05/17 15:59 12/02/17 16:16 15 MG Amlodipine Besylate (Norvasc Tab) 10 mg DAILYBL PO 12/01/17 11:00 12/31/17 10:59 12/03/17 10:14 10 MG Cyclobenzaprine HCl (Flexeril Tab) 10 mg TID PRN PO 11/30/17 18:00 12/30/17 17:59 Lisinopril (Zestril Tab) 10 mg DAILYBL PO 12/01/17 11:00 12/31/17 10:59 12/03/17 10:14 10 MG Clonidine HCl (Catapres Tab) 0.2 mg BID PO 11/30/17 20:00 12/30/17 20:59 12/03/17 07:31 0.2 MG Diclofenac Sodium (Voltaren Tab) 50 mg TIDM PEG 11/30/17 17:00 12/30/17 17:59 Future Hold Nicotine (Nicoderm Cq 14MG Patch) 1 patch QAM TD 12/01/17 08:00 12/31/17 08:59 Miscellaneous (Remove Nicoderm Patch) 1 ea HS N/A 11/30/17 21:00 12/30/17 20:59 Cyanocobalamin (Vitamin B-12 Inj) 1,000 mcg DAILY@1900 IM 11/30/17 19:00 12/04/17 18:44 12/02/17 18:10 1,000 MCG Miscellaneous (Iv Fluids Completed) 1 ea PRN PRN N/A 11/30/17 20:00 11/30/18 19:59 Gadobutrol (Gadavist) 5 mmol UD PRN IV 12/01/17 18:15 12/05/17 18:14 Dexamethasone (Decadron Tab) 4 mg DAILY PO 12/03/17 08:00 01/02/18 07:59 12/03/17 07:31 4 MG Impression 57 year old female multiple falls / LLE weakness Plan 1. xray lumbar spine and hips sacrum- no fracture 2. MRI brain, c spine, thoracic - extensive white matter plaques 3. currently on steroids and Flexeril- no current need discussed with primary team will start to taper off steroids 4. fall risk 5. PT/OT for discharge needs 6. LP 12/03/2017 for rule in MS and other studies. ordered - discussed with daughter and patient 7. will need further outpatient work up for lupus and other rheumatologic disorders that can mimic MS 8. no medications will be started at this time will need outpatient follow up with neurologist in her area for treatment plan and to establish care. Daughter will need all imaging on disc along with labs and CSF results for return to her home in [place] 9. will likely need some type of rehab prior to return home. 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
--- NOTE | 2017-12-03 14:05 | DIAGNOSTIC IMAGING REPORT ---
LUMBAR PUNCTURE DIAGNOSTIC CLINICAL HISTORY: 57 years-old Female with unexplained lower ext weakness likely MS. Acute lower extremity weakness with suspected multiple sclerosis PROCEDURE: The risks, benefits, and alternatives to the procedure is discussed with the patient who voiced understanding. Written informed consent was obtained. The patient was placed prone on the fluoroscopy table. The lower back was prepped and draped in the usual sterile fashion. 1% lidocaine was used for local anesthesia. A 20-gauge spinal needle was inserted into the L2-L3 interlaminar space, and approximately 9 ml of clear colorless cerebrospinal fluid was removed. The patient tolerated the procedure well. There were no immediate complications. The patient was then transported back to their room on the floor. FLUOROSCOPY TIME: 0.3 minutes. One image was submitted. IMPRESSION: Fluoroscopic guided lumbar puncture with removal of approximately 9 ml of cerebrospinal fluid. There were no immediate complications. The above report was generated using voice recognition software. It may contain grammatical, syntax or spelling errors. Electronically signed by: Isaak Parekh M.D. 12/03/2017 2:04 PM Dictated Date/Time: 12/03/2017 2:03 PM
[2017-12-03] MEDS: KETOROLAC TROMETHAMINE 15 MG/ML VIAL IV PRN (20:19)
[2017-12-03] MEDS: CYANOCOBALAMIN 1000 MCG/ML VIAL IM SCH (20:23)
--- NOTE | 2017-12-03 23:11 | Progress Note ---
Subjective Date of Service: Dec 03, 2017. Subjective Pt evaluation today including: conversation w/ patient, physical exam Patient reports improvement with pain today. But stil continues to have weakness. Patient reports she just had Lumbar puncture in the afternoon. Updated daughter. Problem List Medical Problems: (1) Failure of outpatient treatment Status: Acute (2) Frequent falls Status: Acute (3) Left leg weakness Status: Acute (4) Low back pain Status: Acute Review of Systems Constitutional: No fever Eyes: No worsening of vision ENT: No hearing loss Respiratory: No cough Cardiac: No chest pain Abdomen: No pain Musculoskeletal: + muscle pain Neurologic: + weakness Psychiatric: No depression symptoms Heme: No abnormal bleeding/bruising Endo: No fatigue All Other Systems: Reviewed and Negative Medications Current Inpatient Medications Medications (Trade) Dose Ordered Sig/Patricio Route Start Time Stop Time Status Last Admin Dose Admin Gadobutrol (Gadavist) 5.4 mmol UD PRN IV 11/30/17 13:45 12/04/17 13:44 Acetaminophen (Tylenol Tab) 650 mg Q4H PRN PO 11/30/17 15:45 12/30/17 15:44 Magnesium Hydroxide (Milk Of Magnesia Susp) 30 ml Q6H PRN PO 11/30/17 15:45 12/30/17 15:44 Ondansetron HCl (Zofran Inj) 4 mg Q6H PRN IV 11/30/17 15:45 12/30/17 15:44 Ketorolac Tromethamine (Toradol Inj) 15 mg Q6H PRN IV 11/30/17 16:00 12/05/17 15:59 12/03/17 20:19 15 MG Amlodipine Besylate (Norvasc Tab) 10 mg DAILYBL PO 12/01/17 11:00 12/31/17 10:59 12/03/17 10:14 10 MG Cyclobenzaprine HCl (Flexeril Tab) 10 mg TID PRN PO 11/30/17 18:00 12/30/17 17:59 Lisinopril (Zestril Tab) 10 mg DAILYBL PO 12/01/17 11:00 12/31/17 10:59 12/03/17 10:14 10 MG Clonidine HCl (Catapres Tab) 0.2 mg BID PO 11/30/17 20:00 12/30/17 20:59 12/03/17 20:23 0.2 MG Diclofenac Sodium (Voltaren Tab) 50 mg TIDM PEG 11/30/17 17:00 12/30/17 17:59 Future Hold Nicotine (Nicoderm Cq 14MG Patch) 1 patch QAM TD 12/01/17 08:00 12/31/17 08:59 Miscellaneous (Remove Nicoderm Patch) 1 ea HS N/A 11/30/17 21:00 12/30/17 20:59 Cyanocobalamin (Vitamin B-12 Inj) 1,000 mcg DAILY@1900 IM 11/30/17 19:00 12/04/17 18:44 12/03/17 20:23 1,000 MCG Miscellaneous (Iv Fluids Completed) 1 ea PRN PRN N/A 11/30/17 20:00 11/30/18 19:59 Gadobutrol (Gadavist) 5 mmol UD PRN IV 12/01/17 18:15 12/05/17 18:14 Dexamethasone (Decadron Tab) 4 mg DAILY PO 12/03/17 08:00 01/02/18 07:59 12/03/17 07:31 4 MG Objective Vital Signs Date Time Temp Pulse Resp B/P (MAP) Pulse Ox O2 Delivery O2 Flow Rate FiO2 12/03/17 16:06 36.7 66 16 132/79 (96) 98 Room Air 12/03/17 16:00 98 Room Air 12/03/17 09:00 75 110/75 (87) 12/03/17 08:00 97 Room Air 12/03/17 07:31 36.8 71 18 162/101 (121) 97 Room Air 160/99 (119) 12/03/17 00:00 98 Room Air Physical Exam Comments: General Appearance: WD/WN, no apparent distress Eyes: normal inspection ENT: normal ENT inspection Neck: supple, no adenopathy Respiratory/Chest: chest non-tender, lungs clear, normal breath sounds Cardiovascular: regular rate, rhythm, no edema Abdomen: normal bowel sounds, non tender, soft Extremities: normal range of motion Neurologic/Psychiatric: alert, oriented x 3, + pertinent finding Comments: + pertinent finding (normal sensations in all extremities, restorative rehab aide strength 5/5 b/ l. R LE is 5/5 against resistance in all planes. L LE is 4+/5 withslightly weaker against resistance testing of ankle and knee, 2-3/5 from the hip.) Laboratory Results Last 24 Hours Test 12/03/17 06:52 12/03/17 13:26 12/03/17 14:27 CSF Color COLORLESS CSF Appearance CLEAR CSF WBC 4 /uL CSF RBC 0 /uL CSF Xanthrochromic NO XANTHOCHROMIA CSF Cell Count Tube # 3 CSF Lactic Acid 2.2 mmol/L Assessment and Plan 57 y/o F who was admitted on 11/30 for L LE weakness and inability to ambulate. L LE weakness/inability to ambulate: progressive over the last several months and now leading to falls and inability to take care of herself L LE is generally weaker in all planes compared to R but still 5/5 from the ankle and knee, however has 0/5 strength from the hip specifically Imaging is suggestve of Multiple Sclerosis. Neurology recommending Lumbar puncture. Awaiting resuts Switched to PO decadron. Will titrate down Patient will likely require inpatient rehab. Family would like a location near her home in [place] Case management working on this. Also completed FMLA form for daughter to help with mother once short term rehab is completed HTN: stable, continue home meds Tobacco use: has been working towards quitting Nicotine patch 14mg Other: Full code SCDs for DVT proph Reg diet Pt lives alone, CM notified of admission Spent 40 minutes in the management of this case. Continued [facility] stay due to: ambulation difficulties Discharge planning: rehab hospital
[2017-12-04] VITALS: O2SAT 98
[2017-12-04 07:26] VITALS: BP 153/95; PULSE 63; TEMP 36.7; O2SAT 99
[2017-12-04] MEDS: KETOROLAC TROMETHAMINE 15 MG/ML VIAL IV PRN ×2 (08:33→16:00)
[2017-12-04] MEDS: CLONIDINE HCL 0.1 MG TAB PO SCH ×2 (08:33→20:39)
[2017-12-04] MEDS: DEXAMETHASONE 4 MG TAB PO SCH (08:33)
[2017-12-04] MEDS: NICOTINE 14 MG/24 HR TDSY TD SCH (08:33)
[2017-12-04] MEDS: LISINOPRIL 10 MG TAB PO SCH (12:26)
[2017-12-04] MEDS: AMLODIPINE BESYLATE 5 MG TAB PO SCH (12:26)
[2017-12-04 12:29] VITALS: BP 132/80; PULSE 73
[2017-12-04 14:23] VITALS: BP 130/76; PULSE 74; TEMP 36.7; O2SAT 97
--- NOTE | 2017-12-04 14:39 | Progress Note ---
Subjective Date of Service: Dec 04, 2017. Subjective Pt evaluation today including: conversation w/ patient, physical exam, chart review, lab review, review of studies, conversation w/ reporting process consultant, review of inpatient medication list Generalized feeling is getting better, report decrease strength, and weakness in the hip, report has no bowel movement yet, otherwise feeling okay, is getting better than yesterday Problem List Medical Problems: (1) Failure of outpatient treatment Status: Acute (2) Frequent falls Status: Acute (3) Left leg weakness Status: Acute (4) Low back pain Status: Acute Review of Systems Constitutional: + weakness, + fatigue, No fever, No chills, No sweats, No weight loss, No problem reported Eyes: No worsening of vision, No eye pain, No redness, No discharge, No diplopia ENT: No hearing loss, No unusual epistaxis, No nasal symptoms, No sore throat, No tinnitus, No dental problems, No trouble swallowing Respiratory: No cough, No sputum, No wheezing, No shortness of breath, No dyspnea on exertion, No dyspnea at rest, No hemoptysis Cardiac: No chest pain, No orthopnea, No PND, No edema, No claudication, No palpitations Abdomen: No pain, No nausea, No vomiting, No diarrhea, No constipation Musculoskeletal: No joint pain, No muscle pain, No swelling, No calf pain Female : No dysuria, No urinary frequency, No hematuria, No incontinence, No abnormal vaginal bleeding, No vaginal discharge Neurologic: No memory loss, No paralysis, No weakness, No numbness/tingling, No vertigo, No balance problems Psychiatric: No depression symptoms, No anhedonism, No anxiety, No insomnia, No substance abuse Heme: No abnormal bleeding/bruising, No clotting problems, No swollen lymph nodes, No night sweats Endo: No fatigue, No excessive thirst, No excessive urination Skin: No rash, No itch, No new/changing skin lesions, No color change, No bleeding Objective Vital Signs Date Time Temp Pulse Resp B/P (MAP) Pulse Ox O2 Delivery O2 Flow Rate FiO2 12/04/17 14:23 36.7 74 16 130/76 (94) 97 12/04/17 12:29 73 132/80 (97) 12/04/17 07:45 Room Air 12/04/17 07:26 36.7 63 16 153/95 (114) 99 Room Air 12/04/17 00:00 98 Room Air 12/03/17 23:20 36.7 59 18 124/81 (95) 98 Room Air 12/03/17 16:06 36.7 66 16 132/79 (96) 98 Room Air 12/03/17 16:00 98 Room Air Physical Exam General Appearance: WD/WN, no apparent distress, + thin Eyes: normal inspection, PERRL, EOMI, sclerae normal ENT: normal ENT inspection, hearing grossly normal, pharynx normal Neck: supple, no adenopathy, thyroid normal, no JVD, no carotid bruits, trachea midline Respiratory/Chest: chest non-tender, normal breath sounds, no respiratory distress, no accessory muscle use, + decreased breath sounds Cardiovascular: regular rate, rhythm, no edema, no gallop, no JVD, no murmur Abdomen: normal bowel sounds, non tender, soft, no organomegaly, no pulsatile mass Extremities: normal range of motion, non-tender, normal inspection, no pedal edema, no calf tenderness, normal capillary refill, pelvis stable Neurologic/Psychiatric: solar manager II-XII nml as tested, no motor/sensory deficits, alert, normal mood/affect, oriented x 3 Skin: normal color, warm/dry, no rash Lymphatic: no adenopathy Assessment and Plan 57 y/o F admitted on 11/30/2017 for L LE weakness and inability to ambulate later was found has multiple sclerosis Multiple sclerosis associated with l LE weakness/inability to ambulate: progressive over the last several months and now leading to falls and inability to take care of herself prior to admission MRI studies of imaging is suggestve of Multiple Sclerosis. Lumbar puncture was done yesterday, waiting for final results Switched to PO decadron, Will titrate down Generally getting better plan [facility] rehab HTN: Tobacco use: The above conditions stable continue current treatment Other: Full code SCDs for DVT proph Reg diet Pt lives alone, CM notified of admission, possible discharge to rehab or senior care tomorrow if bed available Continued [facility] stay due to: ambulation difficulties, home environment unsafe for pt Discharge planning: rehab hospital
--- NOTE | 2017-12-04 14:52 | Neurology Progress Notes ---
Neurology Progress Note Date of Service Dec 04, 2017. Subjective Francisco is a 57 year old female with PMH HTN, and history of back pain and L LE weakness. She states the back pain has increased and L LE weakness had increased over the last several months. At times she has very painful back spasm and at times she drags her left LE. she has had multiple falls, although no injuries. She denies fever chills night sweats, illness, N, V, D, CP, SOB, chewing difficulties, fatiguing during the day, UE weakness, swallowing issues, vision changes, hearing loss. 1/2 ppd smoker, no EtOH use, minimal caffeine use, no neurologic or rheumatologic family history.Long discussion with patient and daughter regarding plans for LP. Reviewed the MRI results and she voice understanding. Haylie may not be understanding all the details but does know she wants answers to her weakness. Today she is sitting up bedside. She is very appreciative of the work up and the direction of care. [facility] had been in to take to her and she would like to go there prior to returning home which is in [place]. 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 triceps bilaterally 5/5 hip flex right 3/5, left 2/5 plantar flex ext 4/5 bilaterally Current Inpatient Medications Medications (Trade) Dose Ordered Sig/Patricio Route Start Time Stop Time Status Last Admin Dose Admin Acetaminophen (Tylenol Tab) 650 mg Q4H PRN PO 11/30/17 15:45 12/30/17 15:44 Magnesium Hydroxide (Milk Of Magnesia Susp) 30 ml Q6H PRN PO 11/30/17 15:45 12/30/17 15:44 Ondansetron HCl (Zofran Inj) 4 mg Q6H PRN IV 11/30/17 15:45 12/30/17 15:44 Ketorolac Tromethamine (Toradol Inj) 15 mg Q6H PRN IV 11/30/17 16:00 12/05/17 15:59 12/04/17 08:33 15 MG Amlodipine Besylate (Norvasc Tab) 10 mg DAILYBL PO 12/01/17 11:00 12/31/17 10:59 12/04/17 12:26 10 MG Cyclobenzaprine HCl (Flexeril Tab) 10 mg TID PRN PO 11/30/17 18:00 12/30/17 17:59 Lisinopril (Zestril Tab) 10 mg DAILYBL PO 12/01/17 11:00 12/31/17 10:59 12/04/17 12:26 10 MG Clonidine HCl (Catapres Tab) 0.2 mg BID PO 11/30/17 20:00 12/30/17 20:59 12/04/17 08:33 0.2 MG Diclofenac Sodium (Voltaren Tab) 50 mg TIDM PEG 11/30/17 17:00 12/30/17 17:59 Future Hold Nicotine (Nicoderm Cq 14MG Patch) 1 patch QAM TD 12/01/17 08:00 12/31/17 08:59 Miscellaneous (Remove Nicoderm Patch) 1 ea HS N/A 11/30/17 21:00 12/30/17 20:59 Cyanocobalamin (Vitamin B-12 Inj) 1,000 mcg DAILY@1900 IM 11/30/17 19:00 12/04/17 18:44 12/03/17 20:23 1,000 MCG Miscellaneous (Iv Fluids Completed) 1 ea PRN PRN N/A 11/30/17 20:00 11/30/18 19:59 Gadobutrol (Gadavist) 5 mmol UD PRN IV 12/01/17 18:15 12/05/17 18:14 Dexamethasone (Decadron Tab) 3 mg DAILY PO 12/05/17 08:00 01/02/18 07:59 UNV Impression 57 year old female multiple falls / LLE weakness Plan 1. xray lumbar spine and hips sacrum- no fracture 2. MRI brain, c spine, thoracic - extensive white matter plaques 3. currently on steroids and Flexeril- no current need discussed with primary team will start to taper off steroids 4. fall risk 5. PT/OT for discharge needs 6. LP 12/03/2017 for rule in MS and other studies. ordered - discussed with daughter and patient 7. labs are pending for lupus and other RA etiologies that mimic MS 8. no medications will be started at this time will need outpatient follow up with neurologist in her area for treatment plan and to establish care. Daughter will need all imaging on disc along with labs and CSF results for return to her home in [place] 9. will likely need some type of rehab prior to return home. She is from the [facility] Daughter will discuss with care mtg team. [facility] has been here to see her. 10 will sign off for now. will be available for questions concerns as needed I have discussed above patient with Dr Shannan Bush, neurology. Pt not seen. Follow-up with neurology post gutierrez Bush MD
[2017-12-04 16:00] VITALS: O2SAT 98
[2017-12-04] MEDS: MAGNESIUM HYDROXIDE SUSP 30 ML UDC PO PRN (16:08)
[2017-12-04 17:39] LABS: ANA SCREEN TC 249X NEGATIVE (NEGATIVE); ANTI-SS-A <1.0 NEG AI (<1.0 NEG); ANTI-SS-B <1.0 NEG AI (<1.0 NEG)
[2017-12-04] MEDS: ACETAMINOPHEN 325 MG TAB PO PRN (20:39)
[2017-12-04 22:58] VITALS: BP 128/84; PULSE 68; TEMP 36.5; O2SAT 99
[2017-12-05] VITALS: O2SAT 98
[2017-12-05 06:57] VITALS: BP 141/83; PULSE 58; TEMP 36.4; O2SAT 97
[2017-12-05] MEDS: NICOTINE 14 MG/24 HR TDSY TD SCH (07:55)
[2017-12-05] MEDS: CLONIDINE HCL 0.1 MG TAB PO SCH ×2 (07:56→21:19)
[2017-12-05] MEDS: DEXAMETHASONE 1 MG TAB PO SCH (07:56)
[2017-12-05] MEDS: MAGNESIUM HYDROXIDE SUSP 30 ML UDC PO PRN (07:58)
[2017-12-05] MEDS: ACETAMINOPHEN 325 MG TAB PO PRN ×4 (07:58→21:20)
[2017-12-05] MEDS: CYCLOBENZAPRINE HCL 10 MG TAB PO PRN ×2 (08:27→16:25)
[2017-12-05] MEDS ORDERED: MAGNESIUM CITRATE 296 ML/BTL ONE (12:33)
[2017-12-05] MEDS: AMLODIPINE BESYLATE 5 MG TAB PO SCH (12:35)
[2017-12-05] MEDS: LISINOPRIL 10 MG TAB PO SCH (12:35)
[2017-12-05 12:36] VITALS: BP 127/83; PULSE 67
[2017-12-05] MEDS ORDERED: NURSING VERBAL MED ORDER ONE ×2 (12:45→18:30)
[2017-12-05] MEDS ORDERED: MAGNESIUM CITRATE 296 ML/BTL PO ONE (13:00)
[2017-12-05 15:00] VITALS: BP 110/75; PULSE 70; TEMP 36.8; O2SAT 98
--- NOTE | 2017-12-05 15:43 | Progress Note ---
Subjective Date of Service: Dec 05, 2017. Subjective Pt evaluation today including: conversation w/ patient, physical exam, chart review, lab review, review of studies, conversation w/ integration consultant, review of inpatient medication list Continue have significant weakness in the left hip, otherwise doing okay, has been up with therapist, Problem List Medical Problems: (1) Failure of outpatient treatment Status: Acute (2) Frequent falls Status: Acute (3) Left leg weakness Status: Acute (4) Low back pain Status: Acute Review of Systems Constitutional: No fever, No chills, No sweats, No weight loss, No weakness, No fatigue, No problem reported Eyes: No worsening of vision, No eye pain, No redness, No discharge, No diplopia ENT: No hearing loss, No unusual epistaxis, No nasal symptoms, No sore throat, No tinnitus, No dental problems, No trouble swallowing Respiratory: No cough, No sputum, No wheezing, No shortness of breath, No dyspnea on exertion, No dyspnea at rest, No hemoptysis Cardiac: No chest pain, No orthopnea, No PND, No edema, No claudication, No palpitations Abdomen: No pain, No nausea, No vomiting, No diarrhea, No constipation Female : No dysuria, No urinary frequency, No hematuria, No incontinence, No abnormal vaginal bleeding, No vaginal discharge Neurologic: + weakness, + problem reported (Denies urinary and stool incontinence), No memory loss, No paralysis, No numbness/tingling, No vertigo, No balance problems Psychiatric: No depression symptoms, No anhedonism, No anxiety, No insomnia, No substance abuse Heme: No abnormal bleeding/bruising, No clotting problems, No swollen lymph nodes, No night sweats Endo: No fatigue, No excessive thirst, No excessive urination Skin: No rash, No itch, No new/changing skin lesions, No color change, No bleeding Objective Vital Signs Date Time Temp Pulse Resp B/P (MAP) Pulse Ox O2 Delivery O2 Flow Rate FiO2 12/05/17 15:03 Room Air 12/05/17 15:00 36.8 70 18 110/75 (87) 98 12/05/17 12:36 67 127/83 (98) 12/05/17 08:10 Room Air 12/05/17 06:57 36.4 58 20 141/83 (102) 97 Room Air 12/05/17 00:00 98 Room Air 12/04/17 22:58 36.5 68 19 128/84 (99) 99 Room Air 12/04/17 16:00 98 Room Air Physical Exam General Appearance: WD/WN, no apparent distress Eyes: normal inspection, PERRL, EOMI, sclerae normal ENT: normal ENT inspection, hearing grossly normal, pharynx normal Neck: supple, no adenopathy, thyroid normal, no JVD, no carotid bruits, trachea midline Respiratory/Chest: chest non-tender, lungs clear, normal breath sounds, no respiratory distress, no accessory muscle use Cardiovascular: regular rate, rhythm, no edema, no gallop, no JVD, no murmur Abdomen: normal bowel sounds, non tender, soft, no organomegaly, no pulsatile mass Extremities: normal range of motion, non-tender, normal inspection, no pedal edema, no calf tenderness, normal capillary refill, pelvis stable 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 Lumbar puncture was done yesterday, waiting for final results Switched to PO decadron, Will titrate down Generally getting better plan [facility] rehab HTN: Tobacco use: The above conditions stable continue current treatment Other: Full code SCDs for DVT proph Reg diet Pt lives alone, CM notified of admission, possible discharge to rehab or [facility] if bed available Continued [facility] stay due to: ambulation difficulties, home environment unsafe for pt Discharge planning: rehab hospital
[2017-12-05] MEDS ORDERED: BISACODYL 10 MG SUPP ONE (18:20)
[2017-12-05] MEDS ORDERED: BISACODYL 10 MG SUPP PR ONE (18:30)
[2017-12-06 00:01] VITALS: BP 123/76; PULSE 67; TEMP 36.6; O2SAT 99
[2017-12-06] MEDS: NICOTINE 14 MG/24 HR TDSY TD SCH (07:02)
[2017-12-06 07:22] VITALS: BP 161/92; PULSE 64; TEMP 36.6; O2SAT 98
[2017-12-06] MEDS: DEXAMETHASONE 1 MG TAB PO SCH (07:51)
[2017-12-06] MEDS: CLONIDINE HCL 0.1 MG TAB PO SCH ×2 (07:51→20:45)
[2017-12-06] MEDS: CYCLOBENZAPRINE HCL 10 MG TAB PO PRN ×2 (07:59→18:01)
[2017-12-06] MEDS: ACETAMINOPHEN 325 MG TAB PO PRN ×3 (08:00→17:50)
[2017-12-06] MEDS: MAGNESIUM HYDROXIDE SUSP 30 ML UDC PO PRN ×2 (08:00→17:51)
[2017-12-06] MEDS ORDERED: DOCUSATE SODIUM 100 MG CAP PO ONE (09:00)
[2017-12-06] MEDS: POLYETHYLENE (MIRALAX) 17 GM PACK PO SCH (09:48)
[2017-12-06] MEDS: AMLODIPINE BESYLATE 5 MG TAB PO SCH (11:22)
[2017-12-06] MEDS: LISINOPRIL 10 MG TAB PO SCH (11:23)
--- NOTE | 2017-12-06 16:58 | Progress Note ---
Subjective Date of Service: Dec 06, 2017. Subjective Pt evaluation today including: conversation w/ patient, physical exam, chart review, lab review, review of studies, conversation w/ collection systems consultant, review of inpatient medication list Have had several days of constipation, was refusing mag citrate , however has small soft bowel movement yesterday after suppository, today when I see her there was no any bowel movement yet, was complaining lower back pain, and left hip still weak Problem List Medical Problems: (1) Failure of outpatient treatment Status: Acute (2) Frequent falls Status: Acute (3) Left leg weakness Status: Acute (4) Low back pain Status: Acute Review of Systems Constitutional: No fever, No chills, No sweats, No weight loss, No weakness, No fatigue, No problem reported Eyes: No worsening of vision, No eye pain, No redness, No discharge, No diplopia ENT: No hearing loss, No unusual epistaxis, No nasal symptoms, No sore throat, No tinnitus, No dental problems, No trouble swallowing Respiratory: No cough, No sputum, No wheezing, No shortness of breath, No dyspnea on exertion, No dyspnea at rest, No hemoptysis Cardiac: No chest pain, No orthopnea, No PND, No edema, No claudication, No palpitations Abdomen: + constipation, No pain, No nausea, No vomiting, No diarrhea Musculoskeletal: No joint pain, No muscle pain, No swelling, No calf pain Female : No dysuria, No urinary frequency, No hematuria, No incontinence, No abnormal vaginal bleeding, No vaginal discharge Neurologic: + weakness, No memory loss, No paralysis, No numbness/tingling, No vertigo, No balance problems Psychiatric: No depression symptoms, No anhedonism, No anxiety, No insomnia, No substance abuse Heme: No abnormal bleeding/bruising, No clotting problems, No swollen lymph nodes, No night sweats Endo: No fatigue, No excessive thirst, No excessive urination Skin: No rash, No itch, No new/changing skin lesions, No color change, No bleeding Objective Vital Signs Date Time Temp Pulse Resp B/P (MAP) Pulse Ox O2 Delivery O2 Flow Rate FiO2 12/06/17 16:02 Room Air 12/06/17 10:35 Room Air 12/06/17 07:22 36.6 64 18 161/92 (115) 98 Room Air 12/06/17 00:01 36.6 67 20 123/76 (92) 99 Room Air 12/06/17 00:00 Room Air 12/05/17 20:00 Room Air Physical Exam General Appearance: WD/WN, no apparent distress Eyes: normal inspection, PERRL, EOMI, sclerae normal ENT: normal ENT inspection, hearing grossly normal, pharynx normal Neck: supple, no adenopathy, thyroid normal, no JVD, no carotid bruits, trachea midline Respiratory/Chest: chest non-tender, lungs clear, normal breath sounds, no respiratory distress, no accessory muscle use Cardiovascular: regular rate, rhythm, no edema, no gallop, no JVD, no murmur Abdomen: normal bowel sounds, non tender, soft, no organomegaly, no pulsatile mass Extremities: normal range of motion, non-tender, normal inspection, no pedal edema, no calf tenderness, normal capillary refill, pelvis stable 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 Lumbar puncture was done waiting for final results Switched to PO decadron, Will continue titrate down slowly Generally getting better, plan [facility] rehab HTN: Stable will follow Tobacco use: Stable will follow The above conditions stable continue current treatment Constipation, has extensive education of the bowel regimens, will start MiraLAX and Colace and suppository as needed Other: Full code SCDs for DVT proph Reg diet Patient medically ready to be discharged to rehab, is pending for insurance authorization Continued [facility] stay due to: ambulation difficulties, home environment unsafe for pt Discharge planning: rehab hospital
[2017-12-06 17:08] VITALS: BP 145/81; PULSE 70; TEMP 36.9; O2SAT 98
[2017-12-06 20:44] VITALS: BP 137/75; PULSE 76
[2017-12-06] MEDS: DOCUSATE SODIUM 100 MG CAP PO SCH (20:46)
[2017-12-06 23:14] VITALS: BP 116/78; PULSE 61; TEMP 36.7; O2SAT 97
[2017-12-07 07:22] VITALS: BP 150/97; PULSE 63; TEMP 36.7; O2SAT 100
[2017-12-07] MEDS: ACETAMINOPHEN 325 MG TAB PO PRN (08:31)
[2017-12-07] MEDS: DEXAMETHASONE 1 MG TAB PO SCH (08:31)
[2017-12-07] MEDS: CYCLOBENZAPRINE HCL 10 MG TAB PO PRN (08:31)
[2017-12-07] MEDS: MAGNESIUM HYDROXIDE SUSP 30 ML UDC PO PRN (08:31)
[2017-12-07] MEDS: POLYETHYLENE (MIRALAX) 17 GM PACK PO SCH (08:32)
[2017-12-07] MEDS: NICOTINE 14 MG/24 HR TDSY TD SCH (08:32)
[2017-12-07] MEDS: DOCUSATE SODIUM 100 MG CAP PO SCH (08:32)
[2017-12-07] MEDS: CLONIDINE HCL 0.1 MG TAB PO SCH (08:32)
[2017-12-07 09:47] VITALS: BP 150/97; PULSE 63; TEMP 36.7; O2SAT 100
[2017-12-07] MEDS ORDERED: CLC100 PO (09:58)
[2017-12-07] MEDS ORDERED: MOMLX PO (09:58)
[2017-12-07] MEDS ORDERED: DXM1 PO (09:58)
[2017-12-07] MEDS ORDERED: MRLP17 PO (09:58)
[2017-12-07] MEDS ORDERED: NICO14DI5 TD (09:58)
--- NOTE | 2017-12-07 09:58 | Discharge Instructions ---
Discharge Instructions Date of Service Dec 07, 2017. Admission Reason for Admission: Frequent Falls, Left Leg Weakness, Low Back Pain Discharge Discharge Diagnosis / Problem: multiple sclerosis Discharge Goals Goal(s): Decrease discomfort, Improve function, Increase independence, Improve disease control, Improve nutritional status, Learn about illness, Diagnostic testing, Therapeutic intervention Activity Recommendations Activity Level: Up Ad Susan Therapies: Physical Therapy, Occupational Therapy . Additional Information Patient informed of condition: Yes Advance Directives: No DNR: No Level of Care: Acute Rehab Communicable Disease: No Prognosis: Stable Couch Catheter: No Instructions / Follow-Up Instructions / Follow-Up you have Multiple sclerosis you need to follow up with neurologist Dr Shannan Bush in 1-2 week I am tapering Dexamethasone by 2 mg po daily for 3 days, then 1 mg po daily for 3 days, then stop - you need to follow up with your primary care physician in 1 week, - take medication as instructed, never overdose or any misuse, or take with alcohol, because misuse of medicine may cause organ damage or , call your primary care physician if have questions of medicaitons. - call your primary care physician OR go to local emergency room if has any fever/chill, chest pain, shortness of breathing, nausea/vomiting/abdominal pain , facial droop/slurry speech/local weakness, or if has any questions. - fall precaution - diet as instructed - you need to follow up with your subspecialist - you should understand that it is important to follow up the above instruction , and "not following the above instruction" may cause delayed or missed care of your medical conditions which may cause permanent organ damage and even . Current Hospital Diet Patient's current hospital diet: Regular Diet Discharge Diet Recommended Diet: AHA Diet (Heart Healthy) Pending Studies Studies pending at discharge: no Physician Orders On Transfer POLST Discussion: without POLST completion Medical Emergencies . Who to Call and When: Medical Emergencies: If at any time you feel your situation is an emergency, please call 911 immediately. . Non-Emergent Contact Non-Emergency issues call your: Primary Care Provider, Neurologist . . "Provider Documentation" section prepared by Stefan Kirkpatrick. . Core Measure Problem Core Measures: None
[2017-12-07] MEDS: AMLODIPINE BESYLATE 5 MG TAB PO SCH (11:19)
[2017-12-07] MEDS: LISINOPRIL 10 MG TAB PO SCH (11:19)
--- NOTE | 2017-12-07 15:06 | Discharge Summary ---
Discharge Summary Date of Service Dec 07, 2017. Discharge Summary Admission Date: Dec 01, 2017 at 22:34 Discharge Date: Dec 07, 2017 Principal Diagnosis: Multiple sclerosis Problems/Secondary Diagnoses: Lower back pain Procedures: No Consultations: Neurologist Medication Reconciliation New Medications: Dexamethasone (Dexamethasone) 1 Mg Tab 2 MG PO DAILY for 6 Days, TAB 2 mg po daily for 3 days, then 1 mg po daily for 3 days, then stop Docusate Sodium (Docusate Sodium) 100 Mg Cap 100 MG PO BID for 30 Days, CAP Magnesium Hydroxide (Milk of Magnesia) 30 Ml Susp 30 ML PO Q6H PRN for Constipation for 30 Days Nicotine (Nicoderm Cq 14MG Patch) 14 Mg/24 Hr Dis 1 PATCH TD QAM for 30 Days Polyethylene (Miralax) 17 Gm Pow 17 GM PO DAILY PRN for Constipation for 30 Days Continued Medications: Amlodipine (Norvasc) 10 Mg Tab 10 MG PO DAILYBL, TAB Clonidine Hcl (Catapres) 0.2 Mg Tab 0.2 MG PO BID, TAB Cyclobenzaprine Hcl (Flexeril) 10 Mg Tab 1 TAB PO TID PRN for Muscle Spasms for 30 Days, #90 TAB Diclofenac Sod (Diclofenac Sodium Dr) 50 Mg Tabec 1 TAB PEG TIDM Lisinopril (Zestril) 10 Mg Tab 10 MG PO DAILYBL, TAB Discharge Exam Doing the same, up and walk, left hip weakness, with obvious limping Review of Systems: Constitutional: No fever, No chills, No sweats, No weight loss, No weakness , No fatigue, No problem reported Eyes: No worsening of vision, No eye pain, No redness, No discharge, No diplopia, No problem reported Respiratory: No cough, No sputum, No wheezing, No shortness of breath, No dyspnea on exertion, No dyspnea at rest, No hemoptysis, No problem reported Cardiovascular: No chest pain, No orthopnea, No PND, No edema, No claudication, No palpitations, No problem reported Abdomen: No pain, No nausea, No vomiting, No diarrhea, No constipation, No GI bleeding, No problem reported Musculoskeletal: No joint pain, No muscle pain, No swelling, No calf pain, No problem reported Genitourinary - Female: No dysuria, No urinary frequency, No urinary urgency , No urinary incontinence, No urinary retention, No hematuria, No dysmenorrhea, No menorrhagia, No metrorrhagia, No rash, No vaginal bleeding, No vaginal discharge, No vaginal itching, No vulvodynia, No , No problem reported Neurologic: + problem reported (Weakness), No memory loss, No paralysis, No weakness, No numbness/tingling, No vertigo, No balance problems Psychiatric: No depression symptoms, No anhedonism, No anxiety, No insomnia , No substance abuse, No problem reported Endocrine: No fatigue, No excessive thirst, No excessive urination, No problem reported Hematologic / Lymphatic: No abnormal bleeding/bruising, No clotting problems , No swollen lymph nodes, No night sweats, No problem reported Integumentary: No rash, No itch, No new/changing skin lesions, No color change, No bleeding, No problem reported Physical Exam: General Appearance: WD/WN, no apparent distress Eyes: normal inspection, PERRL, EOMI ENT: normal ENT inspection, hearing grossly normal Neck: supple, no adenopathy, thyroid normal Respiratory/Chest: chest non-tender, lungs clear, normal breath sounds Cardiovascular: regular rate, rhythm, no edema, no gallop Abdomen / GI: normal bowel sounds, non tender, soft, no organomegaly Extremities: normal inspection, no calf tenderness, normal capillary refill 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 Lumbar puncture was done waiting for final results Switched to PO decadron, Will continue titrate down slowly upon discharge too Generally getting better, plan [facility] rehab today HTN: Stable will follow Tobacco use: Stable will follow The above conditions stable continue current treatment Constipation, has extensive education of the bowel regimens, will start MiraLAX and Colace and suppository as needed Other: Full code SCDs for DVT proph Reg diet Instructions / Follow-Up you have Multiple sclerosis you need to follow up with neurologist Dr Shannan Buhs in 1-2 week I am tapering Dexamethasone by 2 mg po daily for 3 days, then 1 mg po daily for 3 days, then stop - you need to follow up with your primary care physician in 1 week, - take medication as instructed, never overdose or any misuse, or take with alcohol, because misuse of medicine may cause organ damage or , call your primary care physician if have questions of medicaitons. - call your primary care physician OR go to local emergency room if has any fever/chill, chest pain, shortness of breathing, nausea/vomiting/abdominal pain , facial droop/slurry speech/local weakness, or if has any questions. - fall precaution - diet as instructed - you need to follow up with your subspecialist - you should understand that it is important to follow up the above instruction , and "not following the above instruction" may cause delayed or missed care of your medical conditions which may cause permanent organ damage and even . Total Time Spent: Greater than 30 minutes This includes examination of the patient, discharge planning, medication reconciliation, and communication with other providers. Discharge Instructions Please refer to the electronic Patient Visit Report (Discharge Instructions) for additional information. Additional Copies To Shannan Bush M.D.; Jeramy Tariq D.O.
== END 2017-12-07 12:02 | DRG 60 ==
LOC: C.EDB 11:07 → C.4E 16:07 → ENRESERV 16:09 → EDBEDREQ 16:12 → OBSVTOIN 12-01 22:34
PROVIDERS: ADMIT Family Medicine; ATTEND Hospitalist
PROC: 009U3ZX Drainage of Spinal Canal, Percutaneous Approach, Diagnostic (ICD-10-PCS; principal; 2017-12-03)
DX: G35 Multiple sclerosis (principal); G83.14 Monoplegia of lower limb affecting left nondominant side; R29.6 Repeated falls; I10 Essential (primary) hypertension; M54.5 Low back pain; K59.00 Constipation, unspecified; F17.200 Nicotine dependence, unspecified, uncomplicated; Z79.899 Other long term (current) drug therapy; Z91.81 History of falling